=== PATIENT | male | born 1965 | race Caucasian/White ===

== ENCOUNTER 2017-12-06 07:59 | Day surgery (SDC) | payer BC ==
[~2017-12-06] VITALS: Ht 175.3 cm; Wt 113.4 kg
[~2017-12-06 07:59] MED LIST: ALPRAZOLAM ER0.5 MG PO; CYMBALTA60 MG PO; FLEXERIL PO; GLIMEPIRIDE2 MG PO; KOMBIGLYZE1 TA1 PO; LEXAPRO20 MG PO; METO50TA52 PO; NAPROSYN500 MG PO; PRAVASTATIN SOD20 MG PO; TRESIBA FL100 UNIT/M; XIGDUO; ZESTRIL10 M1 PO
[2017-12-06 10:11] VITALS: BP 124/60
== END 2017-12-06 14:41 | disposition home or self-care (01) | DRG 552 ==
LOC: ORM 07:59
PROVIDERS: ATTEND Anesthesiology Pain Medicine
PROC: 3E0R3BZ Introduction of Anesthetic Agent into Spinal Canal, Percutaneous Approach (ICD-10-PCS; principal; 2017-12-06)
PROC: 3E0R33Z Introduction of Anti-inflammatory into Spinal Canal, Percutaneous Approach (ICD-10-PCS; 2017-12-06)
DX: M54.5 Low back pain (principal); M12.9 Arthropathy, unspecified

== ENCOUNTER 2019-08-06 | Day surgery (SDC) | payer MEDICARE ==
[~2019-08-06] MED LIST changes: +ASPIRIN81 MG PO; +CHANTIX1 MG PO; +LIPITOR10 M1 PO; +MEDICAL MARIJUANA; +TADALAFIL2.5 MG PO; -TRESIBA FL100 UNIT/M; +TRESIBA FL100 UNIT/M SC; +[UNRECOGNIZED DRUG - CODE] PO
== END 2019-08-06 09:35 | disposition home or self-care (01) ==
PROC: 0DBL8ZX Excision of Transverse Colon, Via Natural or Artificial Opening Endoscopic, Diagnostic (ICD-10-PCS; principal; 2019-08-06)
PROC: 0DBC8ZX Excision of Ileocecal Valve, Via Natural or Artificial Opening Endoscopic, Diagnostic (ICD-10-PCS; 2019-08-06)
PROC: 3E0H8GC Introduction of Other Therapeutic Substance into Lower GI, Via Natural or Artificial Opening Endoscopic (ICD-10-PCS; 2019-08-06)
DX: Z12.11 Encounter for screening for malignant neoplasm of colon (principal); D12.3 Benign neoplasm of transverse colon; K64.8 Other hemorrhoids; I10 Essential (primary) hypertension; E11.9 Type 2 diabetes mellitus without complications; Z11.59 Encounter for screening for other viral diseases